=== PATIENT | male | born 1980 | race African-American/Black ===

== ENCOUNTER 2019-07-19 06:09 | Emergency (ER) | payer OTHER ==
[~2019-07-19] VITALS: Ht 182.9 cm; Wt 81.6 kg
[2019-07-19 06:21] VITALS: BP 167/82
== END 2019-07-19 08:30 | disposition left against medical advice (07) ==
LOC: EDBD 06:09 → ER 06:09
DX: R10.10 Upper abdominal pain, unspecified (principal); Z53.21 Procedure and treatment not carried out due to patient leaving prior to being seen by health care provider